=== PATIENT | female | born 1950 | race Caucasian/White ===

== ENCOUNTER → 2020-06-26 13:33 | Outpatient (BNVA) | payer MEDICARE, OTHER, SELFPAY | PROVIDERS: PCP Internal Medicine; Visit Provider Hospitalist | DX: Z76.89 Persons encountering health services in other specified circumstances (principal) | CPT/HCPCS: 99212 ==

== ENCOUNTER → 2020-09-25 13:07 | Outpatient (BNVA) | payer MEDICARE, OTHER, SELFPAY | PROVIDERS: PCP Internal Medicine; Visit Provider Hospitalist | DX: J41.8 Mixed simple and mucopurulent chronic bronchitis (principal); J98.8 Other specified respiratory disorders; R91.8 Other nonspecific abnormal finding of lung field; Z79.51 Long term (current) use of inhaled steroids | CPT/HCPCS: 99212 ==

== ENCOUNTER 2020-10-11 10:40 | Day surgery (SDC) | payer MEDICARE, OTHER, SELFPAY ==
[2020-10-05 15:36] VITALS: BMI 25.0
--- NOTE | 2020-10-10 11:10 | P.CONAN_ITS ---
Documented by User: Agata Snell 10/10/20 11:11 HPI - Anesthesia Eval Consult details Narrative: 70yo F for Bronchoscopy Fiberoptic eliquis for h/o DVT/PE PMFSH Active Problems Active Problems: All Active Problems (Updated 10/05/20 @ 15:32 by Ellyn Maloney) Vapes nicotine containing substance (Acute) Compression fracture (Acute) COPD (chronic obstructive pulmonary disease) (Acute) Airway obstruction (Acute) Pulmonary nodules (Acute) Past Medical History Medical History Airway obstruction Arthritis Compression fracture COPD (chronic obstructive pulmonary disease) Difficulty walking On anticoagulant therapy Pulmonary emboli Pulmonary nodules Superior mesenteric artery stenosis Vapes nicotine containing substance Surgical History Surgical History History of bilateral carpal tunnel release History of esophagogastroduodenoscopy (EGD) Hx of bilateral cataract extraction Hx of colonoscopy Hx of tonsillectomy Social History Social History Are you a primary long term care social worker to a significant other at home: No Do you presently have visiting nurse or other home services: No Smoking Status: Former smoker Use of substances other than those prescribed or required for medical reasons: No Have you been hit, kicked, punched, or otherwise hurt by someone within the past year? If so, by whom?: No Advance Directives: No Advance Directives Information Provided: No Advance Directives on File: No Recently lost weight without trying: No Meds Allergies Allergy/AdvReac Type Severity Reaction Status Date / Time azithromycin [Zithromax] Allergy Severe upset Verified 10/05/20 15:33 stomach Home Medications Medication Instructions Recorded Confirmed Last Taken Type alendronate 70 mg tablet 70 mg PO QWEEK 06/26/20 10/05/20 Unknown History Exam Exam Date and Time: October 10, 2020 1110 Height,Weight and Vital Signs: Height 5 ft Weight 58.06 kg Assessment and Plan Assessment Anesthesia Assessment: Chart Reviewed Documented by User: Tiffany Barajas 10/11/20 12:14 [facility] Past Medical History Medical History Airway obstruction Arthritis Compression fracture COPD (chronic obstructive pulmonary disease) Difficulty walking On anticoagulant therapy Pulmonary emboli Pulmonary nodules Superior mesenteric artery stenosis Vapes nicotine containing substance Surgical History Surgical History History of bilateral carpal tunnel release History of esophagogastroduodenoscopy (EGD) Hx of bilateral cataract extraction Hx of colonoscopy Hx of tonsillectomy Social History Social History Are you a primary long term care social worker to a significant other at home: No Do you presently have visiting nurse or other home services: No Smoking Status: Former smoker Use of substances other than those prescribed or required for medical reasons: No Have you been hit, kicked, punched, or otherwise hurt by someone within the past year? If so, by whom?: No Advance Directives: No Advance Directives Information Provided: No Advance Directives on File: No Recently lost weight without trying: No Meds Allergies Allergy/AdvReac Type Severity Reaction Status Date / Time azithromycin [Zithromax] Allergy Severe upset Verified 10/05/20 15:33 stomach Home Medications Medication Instructions Recorded Confirmed Last Taken Type alendronate 70 mg tablet 70 mg PO QWEEK 06/26/20 10/05/20 Unknown History Exam Airway Mallampati Class: II TM Dist: >3cm Neck ROM: Full Denture: Upper and Lower Assessment and Plan Assessment Anesthesia Assessment: Anesthesia Plan Discussed and Chart Reviewed Final Anesthetic Review NPO: Yes ASA Class: III Final Preanesthetic Review: No Changes in Pt Med Stat, Meds/Allgs Chart Review ed, Consent Obtained/Reviewed and Anes Risks/Benef Reviewed Patient Risk: Intermediate Procedure Risk: Low Assessment/Block/Sedation in SS: Assess/Block/Sedation-SS Anesthetic Plan Anesthetic Plan: GA Disposition: Standard PACU
[2020-10-11 11:10] VITALS: BP 136/61; PULSE 87; RESP 20; TEMP 36.9; O2SAT 97
[2020-10-11] MEDS: Lactated Ringers 1,000 ML 50 ML IV (11:30)
--- NOTE | 2020-10-11 12:15 | MHC.SHP ---
Pre-Procedural Eval Section B Chief Complaint: pleural effusion Allergies: Allergies Allergy/AdvReac Type Severity Reaction Status Date / Time azithromycin [Zithromax] Allergy Severe upset Verified 10/05/20 15:33 stomach Plan I have reviewed the history and physical and performed a pertinent physical examination on my patient. No changes have occurred unless specified.
[2020-10-11 13:00] VITALS: BP 113/55; PULSE 81; RESP 20; TEMP 37.1; O2SAT 98
[2020-10-11 13:05] VITALS: BP 123/47; PULSE 81; RESP 16; O2SAT 97
[2020-10-11 13:10] VITALS: BP 108/53; PULSE 53; RESP 16; O2SAT 97
[2020-10-11 13:15] VITALS: BP 114/45; PULSE 74; RESP 16; O2SAT 97
[2020-10-11 13:30] VITALS: BP 119/45; PULSE 77; RESP 16; TEMP 36.9; O2SAT 96
--- NOTE | 2020-10-12 | OP_ITS ---
SURGEON: Jason Ramirez MD INDICATIONS: COPD and bronchitis. PREOPERATIVE DIAGNOSIS: Chronic obstructive pulmonary disease, bronchitis. POSTOPERATIVE DIAGNOSIS: Chronic obstructive pulmonary disease, bronchitis. PROCEDURE PERFORMED: Bronchoscopy with washings and brushings. ESTIMATED BLOOD LOSS: COMPLICATIONS: ANESTHESIA: ASSISTANTS: SPECIMENS: DESCRIPTION OF PROCEDURE: After the patient was adequately sedated, a flexible digital bronchoscope was inserted via the ET tube to the level of the main lindsay. Tracheal mucosa appeared normal. The main lindsay was nice and sharp. After instilling additional lidocaine, the bronchoscope was then navigated to the entire tracheobronchial tree which was examined to the subsegmental level. No evidence of any endobronchial lesions or masses. Otherwise normal airways. She did have some mucus secretions coming from the left lower lobe. Micro brush was introduced into the left lower lobe, sent to microbiology. Bronchial washings were collected bilaterally, cleaning out all the airways, but no significant findings noted. The patient tolerated the procedure well. Total endoscopic time approximately 5 minutes. INTERPRETATION: 1. Bronchial washings for therapeutic suctioning. 2. Microscopic brushings from the left lower lobe. The patient tolerated the procedure well. MD VIOLET Chisholm/HARRISON / [phone]
== END 2020-10-11 14:15 | disposition home or self-care (01) ==
PROVIDERS: PCP Internal Medicine; Visit Provider Hospitalist
PROC: 0BJ08ZZ Inspection of Tracheobronchial Tree, Via Natural or Artificial Opening Endoscopic (ICD-10-PCS; CPT 31622; principal; 2020-10-11 12:00)
DX: J90 Pleural effusion, not elsewhere classified (principal); J44.9 Chronic obstructive pulmonary disease, unspecified; R91.8 Other nonspecific abnormal finding of lung field; Z86.711 Personal history of pulmonary embolism; Z86.718 Personal history of other venous thrombosis and embolism; F17.290 Nicotine dependence, other tobacco product, uncomplicated; Z79.01 Long term (current) use of anticoagulants; Z79.51 Long term (current) use of inhaled steroids; Z79.52 Long term (current) use of systemic steroids; Z79.899 Other long term (current) drug therapy; Z88.1 Allergy status to other antibiotic agents
CPT/HCPCS: 31628; 87071; 87102; 87107; 87116; 87205; 88112; J0171; J1885; J3010

== ENCOUNTER → 2022-03-12 13:41 | Outpatient (BNVA) | payer MEDICARE, OTHER, SELFPAY | PROVIDERS: PCP Internal Medicine; Visit Provider Hospitalist | DX: J41.8 Mixed simple and mucopurulent chronic bronchitis (principal); J45.909 Unspecified asthma, uncomplicated; J98.8 Other specified respiratory disorders; J90 Pleural effusion, not elsewhere classified; R91.8 Other nonspecific abnormal finding of lung field | CPT/HCPCS: 94618; 99212 ==

== ENCOUNTER 2022-06-13 12:34 | Outpatient (REF) | payer MEDICARE, OTHER, SELFPAY ==
--- NOTE | ~2022-06-13 | XR_ITS ---
EXAMINATION: XR CHEST CLINICAL INFORMATION: Pleural effusion. COMPARISON: None TECHNIQUE: 2 views of the chest were obtained. FINDINGS: The lungs are hyperinflated but clear of acute process heart size and pulmonary vascularity is normal. There are healing fractures bilateral sixth ribs. No acute rib fracture seen. There is mild compression deformity superior endplate T11 and inferior endplate T12 vertebra. XR/XR chest 2V IMPRESSION: Hyperinflated lungs without acute process.
== END 2022-06-13 12:35 | disposition home or self-care (01) ==
LOC: HO.XRAY 12:34
PROVIDERS: PCP Student in an Organized Health Care Education/Training Program; Visit Provider Hospitalist
DX: J43.9 Emphysema, unspecified (principal); J41.8 Mixed simple and mucopurulent chronic bronchitis; J90 Pleural effusion, not elsewhere classified; J98.8 Other specified respiratory disorders; R91.8 Other nonspecific abnormal finding of lung field; F17.210 Nicotine dependence, cigarettes, uncomplicated; Z79.52 Long term (current) use of systemic steroids
CPT/HCPCS: 71046; 99212